=== PATIENT | male | born 1940 | race Caucasian/White ===

== ENCOUNTER 2022-04-11 16:14 | Emergency (ER) | payer MEDICARE, SELFPAY ==
--- NOTE | ~2022-04-11 | CT_ITS ---
EXAMINATION: CT cervical spine wo con DATE: 04/11/2022 17:10 INDICATION: Fall. Head and neck injury. TECHNIQUE: Computed tomography (CT) of the cervical spine was performed without intravenous contrast. Automated exposure control and iterative reconstruction technique were employed. Exam dose: 484.24 mGy-cm total exam DLP. COMPARISON: None FINDINGS: C1 and C2 are normally aligned and the odontoid process is intact. There is mild degenerative disc disease at C2-3 and C3-4. There is moderately severe degenerative disc disease and minimal retrolisthesis at C4-5. Severe degenerative disc disease and mild retrolisthesis at C5-6 Severe degenerative disc disease at C6-7. There is degenerative change at the apophyseal joints throughout the cervical spine. Uncovertebral sofía int spurring is noted in the mid and lower cervical spine, projected C4-5 and C5-6 and C6-7. IMPRESSION: Cervical spondylosis including multilevel degenerative disc disease, degenerative change s apophyseal and uncovertebral joints No fracture or dislocation or locked facet Reviewed, dictated and finalized at [facility]. Reviewed, dictated and finalized at [facility]. IMPRESSION: Cervical spondylosis including multilevel degenerative disc diseas e, degenerative changes apophyseal and uncovertebral joints No fracture or dislocation or locked facet
--- NOTE | ~2022-04-11 | XR_ITS ---
XR chest 1V 04/11/2022 17:14 Indication: Dyspnea Procedure: AP view of the chest Comparison: 05/26/2016 Findings: There are subtle interstitial infiltrates of the right mid and lower lung. Heart size nicole l. No pleural effusion and pneumothorax. No acute osseous abnormality. Advanced degenerative changes of the glenohumeral joints. Impression: 1: Subtle interstitial infiltrates of the right mid and lower lung peripherally, suspicious for pneum onia Reviewed, dictated and finalized at [facility]. Impression: 1: Subtle interstitial infiltrates of the right mid and lower lung peripherally , suspicious for pneumonia
--- NOTE | ~2022-04-11 | CT_ITS ---
EXAMINATION: CT brain wo con DATE: 04/11/2022 17:08 INDICATION: Fall. TECHNIQUE: Computed tomography (CT) of the head was performed without intravenous contrast. The mA wa s adjusted according to patient size. Iterative reconstruction technique was employed. Exam dose: 60 5.33 mGy-cm total exam DLP. COMPARISON: 12/31/2018 MRI brain/brainstem CT brain FINDINGS: Prominent bilateral vertebral artery calcification and bilateral carotid siphon internal ca rotid artery calcifications. There is nonspecific diminished attenuation of the cerebral white matter , likely due to chronic small vessel ischemic changes. Chronic right thalamic and bilateral basal ganglia lacunar infarcts. Chronic parveen lacunar infarcts. No intracranial mass lesion or hemorrhage, midline shift or mass effect effect or subdural or epidura l hematoma is detected. No midline shift or mass effect. No orbital mass lesion. Moderate chronic cerebral and cerebellar volume loss The mastoid air cells and paranasal sinuses are normally developed and aerated. No fracture or bone destruction of the cranial vault. IMPRESSION: Chronic bilateral basal ganglia, right thalamic and parveen lacunar infarcts, stable since 12/31/2018 Cerebral atherosclerosis and chronic small vessel ischemic changes of cerebral white matter Moderate chronic cerebral and cerebellar volume loss No significant change since 12/31/2018 Reviewed, dictated and finalized at [facility]. Reviewed, dictated and finalized at [facility]. IMPRESSION: Chronic bilateral basal ganglia, right thalamic and parveen lacunar i nfarcts, stable since 12/31/2018 Cerebral atherosclerosis and chronic small vessel ischemic changes of cerebral white matter Moderate chronic cerebral and cerebellar volume loss No significant change since 12/31/2018
[2022-04-11 16:16] VITALS: BP 107/81; PULSE 93; RESP 16; TEMP 36.2; O2SAT 95
[2022-04-11 16:46] VITALS: BP 140/76
[2022-04-11 17:43] LABS: Basophils Percent Auto 0.3 % (0.2-1.2); Eosinophils Absolute Auto 0.1 K/mm3 (0-0.3); Eosinophils Percent Auto 0.6 % (0-4.4); Hematocrit 40.6 % (42.0-52.0); Hemoglobin 13.3 g/dL (14.0-18.0); Immature Granulocyte Absolute 0.03 K/mm3 (0.00-0.031); Immature Granulocyte Percent A 0.3 % (0-0.5); Lymphocytes Absolute Auto 0.94 K/mm3 (0.9-3.2); Lymphocytes Percent Auto 9.8 % (18.3-44.2); Mean Corpuscular HGB Conc 32.8 g/dl (32-36); Mean Corpuscular Hemoglobin 29.8 pg (26-34); Mean Corpuscular Volume 90.8 fl (80-100); Mean Platelet Volume 9.5 fl (7.4-10.4); Monocytes Absolute Auto 0.7 K/mm3 (0.1-0.6); Monocytes Percent Auto 6.8 % (2.6-8.5); Neutrophils Absolute Auto 7.9 K/mm3 (1.3-6.7); Neutrophils Percent Auto 82.2 % (45.5-73.1); Platelet Count Result 182 k/mm3 (150-375); Red Blood Count 4.47 M/mm3 (4.6-6.20); Red Cell Distribution Width 13.1 % (11.5-14.5); White Blood Count 9.6 K/mm3 (4.5-10.0)
[2022-04-11 17:56] LABS: Alanine Aminotransferase 8 U/L (6-50); Albumin Level 4.3 g/dL (3.5-5.1); Alkaline Phosphatase 62 U/L (38-126); Anion Gap 12 mmol/L (8-16); Aspartate Amino Transferase 22 U/L (17-59); Bilirubin,Total 0.7 mg/dL (0.2-1.3); Blood Urea Nitrogen 25 mg/dL (9-20); Calcium 9.3 mg/dL (8.4-10.2); Carbon Dioxide 24 mmol/L (22-30); Chloride 101 mmol/L (98-107); Estimated CRCL calculation 39 ml/min; Estimated Glomerular Filt Rate 53; Glucose 111 mg/dL (65-110); Potassium 4.2 mmol/L (3.4-5.0); Sodium 137 mmol/L (137-145)
--- NOTE | 2022-04-11 18:34 | ED.FALL ---
HPI - Fall General Chief Complaint: Fall Stated Complaint: glf - abrasion to forehead Time Seen by Provider: 04/11/22 16:39 Source: patient and family Mode of arrival: EMS Limitations: no limitations History of Present Illness HPI Narrative: 81-year-old with a history of hypertension was brought in by son with complaints of fall. Patient states that he fell off an escalator at [facility] in the mall. He denies loss of consciousness no neck pain complains of multiple abrasions on the back, right forearm and on the leg. He denies any pain. No history of chest pain or shortness of breath. MD complaint: fall Onset (ago): hour(s) (1) Fall from: standing and other (Fell off the escalator) Fall witnessed: yes, by family Place fall occurred: other (shopping mall) Loss of consciousness: none Location of injury: head, face and back Related Data Home Medications Medication Instructions Recorded Confirmed aspirin 25 mg-dipyridamole 200 mg 1 cap PO BID 12/23/19 02/23/21 capsule,ext.release 12 hr multiphase (Aggrenox) calcium carbonate 600 mg calcium 600 mg PO DAILY 12/23/19 02/23/21 (1,500 mg) tablet (Calcium) celecoxib 100 mg capsule 100 mg PO BID 12/23/19 02/23/21 cetirizine 10 mg tablet (Zyrtec) 10 mg PO DAILY PRN 12/23/19 02/23/21 duloxetine 20 mg capsule,delayed 20 mg PO ONCE 12/23/19 02/23/21 release lisinopril 5 mg tablet 5 mg PO DAILY 12/23/19 02/23/21 metformin 500 mg tablet 500 mg PO DAILY 12/23/19 02/23/21 omeprazole 20 mg capsule,delayed 20 mg PO DAILY 12/23/19 02/23/21 release propranolol 20 mg tablet 20 mg PO ONCE 12/23/19 02/23/21 rosuvastatin 40 mg tablet (Crestor) 40 mg PO DAILY 12/23/19 02/23/21 fluticasone propionate 50 1 spray intranasal DAILY 06/07/21 mcg/actuation nasal spray,suspension (Allergy Relief (fluticasone)) Allergies Allergy/AdvReac Type Severity Reaction Status Date / Time Penicillins Allergy Mild ITCHING Verified 04/11/22 16:21 Review of Systems Review of Systems: All systems reviewed & are unremarkable except as noted in HPI and below Constitutional: Constitutional: Reports no additional constitutional complaints Eyes: Eyes: Reports no additional eye complaints ENT: Reports system reviewed and no additional complaints, except as documented Cardiovascular: Cardiovascular: Reports no additional cardiovascular complaints Respiratory: Respiratory: Reports no additional respiratory complaints Gastrointestinal: Gastrointestinal: Reports no additional gastrointestinal complaints Musculoskeletal: Musculoskeletal: Reports no additional musculoskeletal complaints Integumentary/Breasts: Skin/Breast: Reports as per [facility] Social History Social History Smoking status: Former smoker Alcohol intake: never Substance use: never Exam Narrative: GENERAL: Well-appearing, well-nourished, and in no acute distress. HEAD: Normocephalic, atraumatic. has a small abrasion on the forehead EYES: PERRLA and EOMI. ENT: Nares clear, no rhinorrhea or epistaxis. Mucous membranes moist. NECK: Supple. CHEST: Clear to auscultation. No respiratory distress. HEART: Regular rate and rhythm. No murmur heard. Normal peripheral pulses. ABDOMEN: Soft, nontender, nondistended, normal active bowel sounds. EXTREMITIES: Normal range of motion. No edema. Back multiple abrasions on the back SKIN: Warm, dry, no rash. has small skin avulsion on the right forearm and left leg NEURO: No focal deficits. Alert and oriented x3. PSYCH: Normal mood and affect. Course Course Emergency Course: Discussed the CT, x-ray findings with the patient and the son. Informed him about the wound care. Advised Tylenol for pain as needed fall precautions advised Vital Signs Vital signs: Vital Signs Temperature 36.2 C L 04/11/22 16:16 Pulse Rate 93 04/11/22 16:16 Respiratory Rate 16 04/11/22 16:16 Blood Pressure 107/81 04/11/22 16:16 Pulse
[2022-04-11 18:50] VITALS: BP 117/62
[2022-04-11 19:07] VITALS: BP 117/62; PULSE 78; O2SAT 99
== END 2022-04-11 19:10 | disposition home or self-care (01) ==
LOC: ANHED 19:03
PROVIDERS: Emergency Provider Family Medicine; PCP Internal Medicine
DX: S51.801A Unspecified open wound of right forearm, initial encounter (principal); S80.811A Abrasion, right lower leg, initial encounter; S00.81XA Abrasion of other part of head, initial encounter; Z87.891 Personal history of nicotine dependence; I67.2 Cerebral atherosclerosis; M47.812 Spondylosis without myelopathy or radiculopathy, cervical region; M50.31 Other cervical disc degeneration, high cervical region; R91.8 Other nonspecific abnormal finding of lung field; W10.0XXA Fall (on)(from) escalator, initial encounter
CPT/HCPCS: 36415; 70450; 71045; 72125; 80053; 85025; 99284

== ENCOUNTER 2022-06-20 19:00 | Emergency (ER) | payer MEDICARE, SELFPAY ==
--- NOTE | ~2022-06-20 | CT_ITS ---
EXAMINATION: CT cervical spine wo con DATE: 06/20/2022 19:38 INDICATION: fall TECHNIQUE: Computed tomography (CT) of the cervical spine was performed without intravenous contrast. Automated exposure control and iterative reconstruction technique were employed. The dose-length pro duct was 496.52 mGy-cm. COMPARISON: 04/11/2022 FINDINGS: Vertebral Body Alignment: Intact. Reversed lordosis, centered at C4-5. Stable minimal degenerative li stheses at C4-5 and C5-6. Craniocervical and atlantoaxial alignment: Moderate degenerative change. Alignment intact. Osseous structures/fracture: No evidence of a lytic or blastic process in the visualized spine. No e vidence of acute fracture. Cervical soft tissues: The paraspinal soft tissues planes are maintained. Degenerative changes: Multilevel severe degenerative disc disease. Multilevel severe bilateral neural foraminal narrowing. No severe central canal narrowing. IMPRESSION: No acute fracture or traumatic malalignment in the cervical spine. Reviewed, dictated and finalized at [facility].
--- NOTE | ~2022-06-20 | XR_ITS ---
EXAM: XR shoulder LT min 2V DATE: 06/20/2022 19:46 HISTORY: Left shoulder pain; fall this P.M.;hx of arthritic pain . COMPARISON: None available. FINDINGS: Loop recorder. Decreased mineralization. No acute fracture or dislocation. Well-corticated ossific fragment projecting at the inferior glenoid, may represent an old Bank[place] lesion versus frac tured osteophyte. No lytic or blastic lesion. Moderate AC joint hypertrophy and glenohumeral osteoart hritis. No erosion or periosteal change. Soft tissues within normal limits. IMPRESSION: No acute osseous finding in the left shoulder. Reviewed, dictated and finalized at [facility].
--- NOTE | ~2022-06-20 | CT_ITS ---
EXAMINATION: CT brain wo con DATE: 06/20/2022 19:38 INDICATION: Fall . TECHNIQUE: Computed tomography (CT) of the head was performed without intravenous contrast. The mA wa s adjusted according to patient size. Iterative reconstruction technique was employed. The dose-lengt h product was 605.33 mGy-cm. COMPARISON: 04/11/2022 FINDINGS: No acute intracranial hemorrhage or extra-axial fluid collection. No hydrocephalus, mass, or herniation. No acute ischemic infarct. Unremarkable dural venous sinus attenuation. No acute osseous abnormality. The aerated spaces are clear. Mild atrophy and moderate chronic white matter change. Atherosclerotic intracranial calcification. Bi lateral lens replacements. Old bilateral basal ganglia lacunar infarcts. Old, focal right thalamic an d pontine infarcts. IMPRESSION: No acute intracranial process. Reviewed, dictated and finalized at [facility].
[2022-06-20 19:06] VITALS: BP 142/80; PULSE 96; RESP 20; TEMP 36.6; O2SAT 98
--- NOTE | 2022-06-20 19:19 | ED.FALL ---
HPI - Fall General Chief Complaint: Fall Stated Complaint: fall, head, left shoulder, back pain Time Seen by Provider: 06/20/22 19:10 History of Present Illness HPI Narrative: This is an 82-year-old male with past medical history of hypertension, diabetes, coronary artery disease on Plavix, who presents emergency department after a fall at approximately 4:00 this afternoon. The patient states he was walking when he tripped on a toy box, striking his forehead on a door. He denies loss of consciousness, weakness/numbness, change or loss of vision. He believes he also struck his shoulder. He complains of dull left shoulder pain, 6 out of 10 without radiation and mild dull headache without radiation. He denies chest pain, shortness of breath or palpitations before or after the fall. He states he was able to get up immediately after the fall under his own power and walk without any difficulty. Related Data Home Medications Medication Instructions Recorded Confirmed aspirin 25 mg-dipyridamole 200 mg 1 cap PO BID 12/23/19 02/23/21 capsule,ext.release 12 hr multiphase (Aggrenox) calcium carbonate 600 mg calcium 600 mg PO DAILY 12/23/19 02/23/21 (1,500 mg) tablet (Calcium) celecoxib 100 mg capsule 100 mg PO BID 12/23/19 02/23/21 cetirizine 10 mg tablet (Zyrtec) 10 mg PO DAILY PRN 12/23/19 02/23/21 duloxetine 20 mg capsule,delayed 20 mg PO ONCE 12/23/19 02/23/21 release lisinopril 5 mg tablet 5 mg PO DAILY 12/23/19 02/23/21 metformin 500 mg tablet 500 mg PO DAILY 12/23/19 02/23/21 omeprazole 20 mg capsule,delayed 20 mg PO DAILY 12/23/19 02/23/21 release propranolol 20 mg tablet 20 mg PO ONCE 12/23/19 02/23/21 rosuvastatin 40 mg tablet (Crestor) 40 mg PO DAILY 12/23/19 02/23/21 fluticasone propionate 50 1 spray intranasal DAILY 06/07/21 mcg/actuation nasal spray,suspension (Allergy Relief (fluticasone)) Allergies Allergy/AdvReac Type Severity Reaction Status Date / Time Penicillins Allergy Mild ITCHING Verified 04/11/22 16:21 Review of Systems Review of Systems: CONSTITUTIONAL: Denies fever, chills, or sweats. EYES: Denies visual changes, redness, or discharge. ENT: Denies rhinorrhea, congestion, sore throat, or otalgia. CARDIOVASCULAR: Denies chest pain, palpitations, or edema. RESPIRATORY: Denies cough or dyspnea. GASTROINTESTINAL: Denies abdominal pain, nausea, vomiting, or diarrhea. GENITOURINARY: Denies dysuria or hematuria. SKIN: Denies rash or itching. MUSCULOSKELETAL: Left shoulder pain Denies back pain, or myalgia. NEUROLOGIC: Denies headache, numbness, dizziness, or weakness. PSYCHIATRIC: Denies anxiety or depression. [facility] Past Medical History Medical History (Updated 06/20/22 @ 23:06 by Willy Painter MD) Coronary artery disease Hypertension Type 2 diabetes mellitus Surgical History Surgical History (Updated 06/20/22 @ 23:08 by Willy Painter MD) H/O coronary angioplasty Social History Social History Smoking status: Former smoker Alcohol intake: never Substance use: never Exam Narrative: GENERAL: Well-appearing, well-nourished, and in no acute distress. HEAD: Normocephalic, 2 mm laceration noted over the superior aspect of the nasal bridge, bleeding controlled EYES: PERRLA and EOMI. ENT: Nares clear, no rhinorrhea or epistaxis. Mucous membranes moist. Oropharynx without tonsillar hypertrophy exudate or other lesions. NECK: Supple. No adenopathy or masses. No carotid bruits or JVD CHEST: Clear to auscultation. No respiratory distress. No wheezes rales or rhonchi HEART: Regular rate and rhythm. No murmur heard. Normal peripheral pulses. ABDOMEN: Soft, nontender, nondistended, normal active bowel sounds. EXTREMITIES: Mild tenderness to palpation over the anterior medial aspect of the left shoulder; range of motion. No edema. No vomiting, no erythema, no swelling SKIN: Warm, dry, no rash. NEURO: No foca
[2022-06-20] MEDS: ACETAMINOPHEN 500 MG TABLET 1000 MG PO (20:22)
[2022-06-20 20:39] VITALS: BP 154/79; PULSE 72; RESP 18; TEMP 36.6; O2SAT 100
== END 2022-06-20 21:40 | disposition home or self-care (01) ==
PROVIDERS: Emergency Provider Preventive Medicine Aerospace Medicine; PCP Internal Medicine
DX: S40.012A Contusion of left shoulder, initial encounter (principal); S01.21XA Laceration without foreign body of nose, initial encounter; I10 Essential (primary) hypertension; E11.9 Type 2 diabetes mellitus without complications; I25.10 Atherosclerotic heart disease of native coronary artery without angina pectoris; Z98.61 Coronary angioplasty status; Z87.891 Personal history of nicotine dependence; Z79.02 Long term (current) use of antithrombotics/antiplatelets; Z79.82 Long term (current) use of aspirin; Z79.84 Long term (current) use of oral hypoglycemic drugs; W01.198A Fall on same level from slipping, tripping and stumbling with subsequent striking against other object, initial encounter
CPT/HCPCS: 70450; 72125; 73030; 99284; A9270